=== PATIENT | female | born 1955 | race Caucasian/White ===

== ENCOUNTER → 2020-10-10 10:05 | Outpatient (BNVA) | payer MEDICARE, SELFPAY | PROVIDERS: Family Provider Family Medicine; PCP Family Medicine; Referring Provider Family Medicine; Visit Provider Internal Medicine Rheumatology | DX: M19.90 Unspecified osteoarthritis, unspecified site (principal); R76.8 Other specified abnormal immunological findings in serum; Z79.899 Other long term (current) drug therapy; Z11.59 Encounter for screening for other viral diseases; Z11.1 Encounter for screening for respiratory tuberculosis; M20.41 Other hammer toe(s) (acquired), right foot; M20.42 Other hammer toe(s) (acquired), left foot; E11.40 Type 2 diabetes mellitus with diabetic neuropathy, unspecified; Z79.4 Long term (current) use of insulin | CPT/HCPCS: 99204 ==

== ENCOUNTER 2020-10-11 13:38 | Outpatient (CLI) | payer MEDICARE, SELFPAY ==
--- NOTE | 2020-10-11 13:52 | XR_ITS ---
WS: [id number] Left foot, 3 views, 10/11/2020 Clinical Data: Z79.899 - Other assisted (current) drug therapy Comparison: Bilateral feet, 05/14/2018. Findings: There is a small bunion at the head of the left first metatarsal. There is a plantar spur and an Achi lles spur. There are no fractures or dislocations. There is calcification of the wall of the small arteries. XR/XR foot LT min 3V* [id number] Impression: 1. Small bunion at head of left first metatarsal. 2. Heel spurs.
--- NOTE | 2020-10-11 13:52 | XR_ITS ---
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 Findings: No nodules, masses or effusions are seen. The heart is normal. The pulmonary vascularity is not increased. No pneumonia or pneumothorax is seen. There are clips over the surface of the left di aphragms from surgery. XR/XR chest 2V* [id number] Impression: Negative chest.
--- NOTE | 2020-10-11 13:52 | XR_ITS ---
WS: [id number] Right hand, 3 views, 10/11/2020 Clinical Data: Z79.899 - Other senior care (current) drug therapy Comparison: None. Findings: No fractures or dislocations are seen. The soft tissues are unremarkable. The joint space s are normal No periarticular demineralization or calcifications are seen. XR/XR hand RT min 3V* [id number] Impression: Negative right hand.
--- NOTE | 2020-10-11 13:52 | XR_ITS ---
WS: [id number] Right foot, 3 views, 10/11/2020 Clinical Data: Z79.899 - Other fpc (current) drug therapy Comparison: Bilateral feet, 05/14/2018. Findings: No fractures or dislocations are seen. No bone destruction or erosion is noted. There is a small buni on of the head of the right first metatarsal. There is a plantar spur and an Achilles spur. There are calcifications in the pearl of small vessels. XR/XR foot RT min 3V* [id number] Impression: 1. Small right bunion at head of right first metatarsal. 2. Heel spurs.
--- NOTE | 2020-10-11 13:52 | XR_ITS ---
WS: [id number] Left hand, 3 views, 10/11/2020 Clinical Data: Z79.899 - Other nursing home (current) drug therapy Comparison: None. Findings: No fractures or dislocations are seen. The soft tissues are unremarkable. The joint spaces are normal No periarticular demineralization or calcifications are seen. XR/XR hand LT min 3V* [id number] Impression: Negative left hand.
[2020-10-11 14:54] LABS: Basophils # 0.1 10^3/uL (0.0-0.1); Basophils % 0.7 %; Eosinophils # 0.2 10^3/uL (0.0-0.8); Eosinophils % 2.4 %; Hematocrit 45.5 % (37.0-47.0); Hemoglobin 14.7 g/dL (11.5-15.3); Lymphocytes # 2.6 10^3/uL (0.8-4.8); Lymphocytes % 36.3 %; Mean Corpuscular HGB Conc 32.3 g/dL (30.0-36.0); Mean Corpuscular Hemoglobin 30.1 pg (28.0-34.0); Mean Platelet Volume 9.7 fL (7.4-10.4); Monocytes # 0.7 10^3/uL (0.2-0.9); Monocytes % 9.8 %; Neutrophils # 3.58 10^3/uL (1.8-7.7); Neutrophils % 50.4 %; Nucleated Red Blood Cells % 0 %; Platelet Count 222 10^3/cmm (130-400); Red Blood Count 4.89 10^6/uL (4.1-5.3); Red Cell Distribution Width 13.2 % (12.1-15.1); White Blood Count 7.1 10^3/uL (4.0-10.0)
[2020-10-11 15:42] LABS: 25 Hydroxy Vitamin D 27 ng/mL (30-100); Alanine Aminotransferase 25 U/L (0-33); Alkaline Phosphatase 66 IU/L (35-105); Aspartate Amino Transferase 22 U/L (0-32); C Reactive Protein 2.9 mg/L (0.0-4.9); Globulin 3.9 g/dL (1.3-4.6); Glomerular Filtration Rate 84.2 mL/min (90-130); Total Bilirubin 0.4 mg/dL (0.15-1.2); Total Protein 7.9 g/dL (6.6-8.7); Uric Acid 6.5 mg/dL (2.4-5.7)
[2020-10-11 15:52] LABS: Hepatitis B Core AB, Total Non-Reactive (Nonreactive); Hepatitis B Surface Antigen Non-Reactive (Nonreactive); Hepatitis C Virus Antibody Non-Reactive (Nonreactive)
[2020-10-11 15:59] LABS: Erythrocyte Sedimentation Rate 30 mm/hr (0-15)
[2020-10-13 11:22] LABS: COMPLEMENT, TOTAL (CH50) >60 U/mL (31-60)
[2020-10-13 12:27] LABS: COMPLEMENT COMPONENT C3C 169 mg/dL (83-193); COMPLEMENT COMPONENT C4C 20 mg/dL (15-57)
[2020-10-13 14:01] LABS: Cyclic Citrullinated Peptide 16 UNITS
[2020-10-16 16:43] LABS: THYROID PEROXIDASE ANTIBODIES 2 IU/mL (<9)
[2020-10-17 13:13] LABS: CENTROMERE B ANTIBODY <1.0 NEG AI (<1.0 NEG); JO-1 ANTIBODY <1.0 NEG AI (<1.0 NEG); RNP ANTIBODY <1.0 NEG AI (<1.0 NEG); SCL-70 ANTIBODY <1.0 NEG AI (<1.0 NEG); SJOGREN'S ANTIBODY (SS-A) <1.0 NEG AI (<1.0 NEG); SM ANTIBODY <1.0 NEG AI (<1.0 NEG); SS-B <1.0 NEG AI (<1.0 NEG)
[2020-10-17 14:13] LABS: ANA SCREEN, IFA NEGATIVE (NEGATIVE)
[2020-10-19 00:37] LABS: DNA AB (DS) CRITHIDIA,IFA NEGATIVE (NEGATIVE)
== END 2020-10-11 13:39 | disposition home or self-care (01) ==
PROVIDERS: PCP Family Medicine; Visit Provider Internal Medicine Rheumatology
DX: M19.90 Unspecified osteoarthritis, unspecified site (principal); R76.8 Other specified abnormal immunological findings in serum; Z79.899 Other long term (current) drug therapy; Z11.59 Encounter for screening for other viral diseases; Z11.1 Encounter for screening for respiratory tuberculosis
CPT/HCPCS: 36415; 71046; 73130; 73630; 80076; 82306; 82565; 84550; 85025; 85651; 86140; 86160; 86162; 86235; 86255; 86376; 86431; 86480; 86704; 86803; 87340

== ENCOUNTER → 2020-10-31 14:30 | Outpatient (BNVA) | payer MEDICARE, SELFPAY | PROVIDERS: PCP Family Medicine; Visit Provider Internal Medicine Rheumatology | DX: M25.541 Pain in joints of right hand (principal); M25.542 Pain in joints of left hand; E11.40 Type 2 diabetes mellitus with diabetic neuropathy, unspecified; Z79.4 Long term (current) use of insulin; G89.29 Other chronic pain; M54.5 Low back pain | CPT/HCPCS: 99214 ==

== ENCOUNTER 2021-03-13 09:20 | Outpatient (CLI) | payer MEDICARE, SELFPAY ==
--- NOTE | 2021-03-13 09:28 | US_ITS ---
WS: [id number] Complete ABDOMINAL ULTRASOUND HISTORY: ACUTE RUQ ABDOMINAL PAIN COMPARISON: None available. Liver: 25.9 cm in length. Marked enlargement of the liver. The entire liver is poorly visualized due to hepatic steatosis. Very coarsened echotexture throughout. No bile duct dilatation. Gallbladder: Prior cholecystectomy. Pancreas: Normal size and echogenicity. CBD: 0.4 cm. Right kidney: 12.7 cm x 6.3 cm x 6.0 cm. No mass, cortical thickening or hydronephrosis. Left kidney: 13.2 cm x 5.6 cm x 5.9 cm. No mass, cortical thickening or hydronephrosis. Spleen: Moderate enlargement the spleen. Spleen measures 15 cm in length. Abdominal aorta and IVC are within normal limits. No ascites. US/US abdomen complete* [id number] IMPRESSION: 1. Marked hepatic steatosis and hepatomegaly. 2. Moderate splenomegaly. 3. Prior cholecystectomy.
== END 2021-03-13 09:21 | disposition home or self-care (01) ==
LOC: US 09:23
PROVIDERS: PCP Family Medicine; Visit Provider Family Medicine
DX: R10.11 Right upper quadrant pain (principal); K76.0 Fatty (change of) liver, not elsewhere classified; R16.0 Hepatomegaly, not elsewhere classified; R16.1 Splenomegaly, not elsewhere classified; Z90.49 Acquired absence of other specified parts of digestive tract
CPT/HCPCS: 76700

== ENCOUNTER 2022-05-30 09:49 | Outpatient (CLI) | payer MEDICARE, SELFPAY ==
--- NOTE | 2022-05-30 10:02 | MM_ITS ---
WS: [id number] BILATERAL DIAGNOSTIC DIGITAL TOMOSYNTHESIS MAMMOGRAM WITH CAD HISTORY: SCREENING COMPARISON: 04/03/2021, 11/16/2019 Bilateral CC, ML and MLO views with tomosynthesis and synthetic mammography submitted. Computer aided detection analyzed. Breast composition: There are scattered areas of fibroglandular density. No suspicious masses, microc alcifications or architectural distortion. Significant volume loss LEFT breast with postsurgical and postradiation changes. Benign dystrophic calcifications. No recurrent mass or calcifications identifi ed. RIGHT breast is negative. MM/[place] [id number] IMPRESSION: BI-RADS: 2-Benign FOLLOW UP: 1 Year Follow-up
== END 2022-05-30 09:50 | disposition home or self-care (01) ==
PROVIDERS: PCP Family Medicine; Visit Provider Family Medicine
DX: Z85.3 Personal history of malignant neoplasm of breast (principal)
CPT/HCPCS: 77062; 77063; 77067; G0279

== ENCOUNTER 2023-12-02 10:05 | Outpatient (CLI) | payer MEDICARE, SELFPAY ==
--- NOTE | 2023-12-02 10:18 | MM_ITS ---
NOTE: Report was unsigned for reason: Order was edited. Original Signature date and time was: 12/02/23 @ 1222 WS: [id number] DIAGNOSTIC LEFT DIGITAL TOMOSYNTHESIS MAMMOGRAPHY WITH CAD. HISTORY: Follow-up to incomplete mammogram obtained on 06/02/2023. Prior lumpectomy and cancer LEFT breast. COMPARISON: 06/02/2023, 05/30/2022, 04/03/2021 Technique: CC, MLO and ML views. Magnification views and spot compression views LEFT breast. Breast composition: There are scattered areas of fibroglandular density. The asymmetry described on the prior mammogram is very difficult to visualize. Only on 1 view is this asymmetry with associated calcifications noted in the posterior breast. There are additional scattered benign calcifications and biopsy clips. There is no distortion. This is a very difficult area to image with the patient's condition as it is. As compared to 06/02/2023 there is been no obvious change. [facility] MM/[place] [id number] IMPRESSION: BI-RADS: 3-Probably Benign FOLLOW UP: 6 Month Follow-up This is extremely difficult area to image with the patient's condition. The margi cifications and asymmetry in the posterior LEFT breast are similar to the prior examination. This would be very difficult to biopsy as it is only seen in one view. Recommend 6-month follow-up.
== END 2023-12-02 10:06 | disposition home or self-care (01) ==
LOC: RAD 10:05
PROVIDERS: PCP Family Medicine; Visit Provider Family Medicine
DX: R92.8 Other abnormal and inconclusive findings on diagnostic imaging of breast (principal); R92.323 Mammographic fibroglandular density, bilateral breasts
CPT/HCPCS: 77061; 77062; G0279

== ENCOUNTER 2024-06-07 10:01 | Outpatient (CLI) | payer MEDICARE, SELFPAY ==
--- NOTE | 2024-06-07 10:10 | MM_ITS ---
WS: [id number] DIAGNOSTIC BILATERAL DIGITAL BREAST TOMOSYNTHESIS MAMMOGRAPHY WITH CAD HISTORY: ABNORMAL MAMMOGRAM COMPARISON: 12/02/2023, 06/02/2023, 04/03/2021 TECHNIQUE: Bilateral craniocaudad, mediolateral oblique, and mediolateral views are submitted with to mosynthesis and SM. LEFT CC and MLO magnification. Computer aided detection utilized. Breast composition: There are scattered areas of fibroglandular density. Significant volume loss in the LEFT breast. There are additional dystrophic calcifications scattered throughout the LEFT breast. Surgical clips are noted towards the chest wall. There is no asymmetry. P reviously described asymmetry and possible calcifications are not identified on today's examination. The chest wall and pectoralis muscle are very difficult to visualize in their entirety. MM/MM diag BI tomosynthesis [id number] IMPRESSION: BI-RADS: 2 - Benign. FOLLOW UP: 1 Year Follow-up No suspicious calcifications or asymmetric density seen on today's LEFT breast mammographic evaluation. Return to annual screening mammography.
== END 2024-06-07 10:02 | disposition home or self-care (01) ==
PROVIDERS: PCP Family Medicine; Visit Provider Family Medicine
DX: R92.8 Other abnormal and inconclusive findings on diagnostic imaging of breast (principal); R92.323 Mammographic fibroglandular density, bilateral breasts; R92.1 Mammographic calcification found on diagnostic imaging of breast
CPT/HCPCS: 77061; 77062; G0279